=== PATIENT | male | born 1965 | race Caucasian/White ===

== ENCOUNTER 2017-04-03 22:46 | Emergency (ER) | payer SELFPAY ==
--- NOTE | 2017-04-03 22:52 | PDOC ---
History of Present Illness - General Chief Complaint: Weakness Stated Complaint: WEAKNESS TO BOTH LEGS FOR 6 DAYS Time Seen by Provider: 04/03/17 22:52 History Source: Patient Exam Limitations: No Limitations - History of Present Illness Initial Comments: 04/03/17 23:07 This is a 52-year-old male who comes in complaining of pain and weakness in his legs bilateral. Patient said that he had some problems at home and the for about 3 weeks was drinking heavily and doing crystal meth. Patient said he was admitted to another facility where he was an inpatient for several days secondary to animal nitrate poppers that resulted in low oxygen levels. Patient said that he is experiencing pain in his muscles and generalized weakness of his legs bilateral. Patient said the pain is primarily in his posterior calves and behind his knees. Patient said that bad at rest there is no pain but when he tries to walk the muscles are painful patient denies history of similar symptoms in the past patient denies any headache or neck pain. Patient denies any back pain. Patient. He says he has been using crutches to get around and has not followed up with his doctor. Patient said symptoms of been going on now for approximately a week to a week and a half. PAST MEDICAL HISTORY: no significant history PAST SURGICAL HISTORY: no significant history FAMILY HISTORY: no pertinant history SOCIAL HISTORY: Pt lives with family and is employed. MEDICATIONS: reviewed ALLERGIES: As per nursing notes Review of Systems General: No fevers or chills, no weakness, no weight loss HEENT: No change in vision. No sore throat,. No ear pain CardioVascular: No chest pain or shortness of breath Respiratory:No cough, or wheezing. Gastrointestinal: no nausea, vomitting, diarrhea or constipation, No rectal bleeding Genitourinary: No dysuria, hematuria, or frequency Musculoskeletal: Bilateral lower extremity pain and weakness Neurologic: No headache, vertigo, dizziness or loss of consciousness Psychiatric: nor depression Skin: No rashes or easy bruising Endocrine: no increased thirst or abnormal weight change Allergic: no skin or latex allergy All other systems reviewed and normal GENERAL: The patient is awake, alert, and fully oriented, in no acute distress. HEAD: Normal with no signs of trauma. EYES: Pupils equal, round and reactive to light, extraocular movements intact, sclera anicteric, conjunctiva clear. EXTREMITIES: Normal range of motion, no edema. There is no tenderness on palpation of the posterior calf or thighs. There is full range of motion of the lower extremities. Pulses of the lower extremities are present equal and normal NEUROLOGICAL: Normal speech, nonfocal exam, strength is 4 out of 5 bilateral lower extremities. PSYCH: Normal mood, normal affect. SKIN: Warm, Dry, normal turgor, no rashes or lesions noted. Head CT negative for any acute intracranial pathology Assessment and plan: This is a 52-year-old male who comes in complaining of bilateral lower extremity pain and weakness when trying to use his legs. Patient denies any pain in less he uses the muscles of his legs. Patient was ordered Toradol here in the emergency room which she refused and was given ibuprofen instead. Patient had a workup including a head CT and labs all of which were unremarkable with the exception of a very mildly elevated white count of 12.4 but no left shift. Patient has a primary care doctor that he can follow-up with was told to call his primary care doctor in the morning make an appointment to follow-up with his primary care doctor as soon as possible. The addition to that patient was given a prescription for Naprosyn and told to take that and begin to ambulate and use his muscles to help build strength back up. Past History - Past Medical History Allergies/Adverse Reactions: Allergies Allergy/AdvReac Type Severity Reaction Status Date / Time ceftriaxone sodium Allergy Intermediate Itching Verified 07/23/16 09:09 [From Rocephin] Home Medications: Ambulatory Orders Naproxen [Naprosyn -] 500 mg PO BID #14 tablet 04/04/17 Anemia: No Asthma: No Cancer: No Cardiac Disorders: No CVA: No COPD: No CHF: No Dementia: No Diabetes: No GI Disorders: Yes (DIVERTICULITIS/MOST RECENTLY MILD CASE X2 MONTHS AGO) Disorders: No HTN: No Hypercholesterolemia: No Liver Disease: No Seizures: No Thyroid Disease: No - Surgical History Abdominal Surgery: Yes (BILATERAL HERNIA REPAIR A CHILD) Appendectomy: No Cardiac Surgery: No Cholecystectomy: No Lung Surgery: No Neurologic Surgery: No Orthopedic Surgery: No - Psycho/Social/Smoking Cessation Hx Anxiety: No Suicidal Ideation: No Smoking History: Never smoked Have you smoked in the past 12 months: No Hx Alcohol Use: Yes (RARE/1-2 MONTHLY) Drug/Substance Use Hx: No Substance Use Type: Alcohol Hx Substance Use Treatment: No ED Treatment Course - LABORATORY CBC & Chemistry Diagram: 04/04/17 00:38 04/04/17 00:38 *DC/Admit/Observation/Transfer Diagnosis at time of Disposition: Pain in both lower extremities - Discharge Dispostion Disposition: HOME Condition at time of disposition: Stable Admit: No - Prescriptions Prescriptions: Naproxen [Naprosyn -] 500 mg PO BID #14 tablet - Patient Instructions Additional Instructions: For the pain take Naprosyn 1 tablet twice a day with food don't take on an empty stomach. I sent a prescription to your pharmacy for the Naprosyn so get it filled and take the Naprosyn instead [id number] as it is stronger. Call your doctor in the morning and get an appointment to follow-up with your doctor as soon as possible. Return to the emergency department immediately with ANY new, persistent or worsening symptoms. Continue any medications as previously prescribed by your physician. . Please make sure your doctor reviews the results of your emergency evaluation. Thank you for coming to the Emergency Department today for your care. It was a pleasure to see you today. Please note that your evaluation is INCOMPLETE until you follow-up with your doctor.
[2017-04-03 23:00] VITALS: BP 135/91; PULSE 102; TEMP 99.1; BMI 31.0
[2017-04-03 23:33] LABS: PH,URINE 5.5 (4.5-8); URINE APPEARANCE Clear; URINE BILIRUBIN 1+ (NEGATIVE); URINE GLUCOSE (UA) Negative (NEGATIVE); URINE KETONE Trace (NEGATIVE); URINE LEUK ESTERASE Negative (NEGATIVE); URINE NITRITE Negative (NEGATIVE); URINE PROTEIN Negative (NEGATIVE); URINE UROBILINOGEN 0.2 (0.2-1.0)
[2017-04-03 23:34] LABS: URINE BLOOD Trace-intact (NEGATIVE); URINE COLOR YELLOW
[2017-04-03 23:42] LABS: CALCIUM OXALATE CRYSTALS FEW /hpf (NONE SEEN); URINE BACTERIA FEW /hpf (NEGATIVE); URINE WBC 0-2 (3-5)
[2017-04-04] MEDS ORDERED: KETOROLAC TROMETHAMINE 60 MG/2 ML VIAL IM ONE (00:43)
[2017-04-04] MEDS ORDERED: KETOROLAC TROMETHAMINE 60 MG/2 ML VIAL ONE (00:48)
[2017-04-04 00:50] LABS: BASOPHIL 0.5 % (0-2.0); EOSINOPHIL 0.9 % (0-4.5); MCH 30.6 pg (25.7-33.7); MCHC 33.7 g/dl (32.0-35.9); MEAN CELL VOLUME 90.7 fl (80-96); MEAN PLT VOLUME 9.5 fl (7.5-11.1); NEUTROPHILS 59.8 % (42.8-82.8); PLATELET COUNT 320 K/MM3 (134-434); RDW 13.4 % (11.9-15.9); WHITE BLOOD COUNT 12.4 K/mm3 (4.0-10.0)
[2017-04-04] MEDS ORDERED: IBUPROFEN 600 MG TABLET (FP) PO ONE ×2 (00:50→00:53)
[2017-04-04 01:23] LABS: ALBUMIN 3.2 g/dl (3.4-5.0); ANION GAP 9 (8-16); BILIRUBIN,TOTAL 0.4 mg/dL (0.2-1.0); CALCIUM 8.6 mg/dL (8.5-10.1); CO2 29 mmol/L (21-32); CREATININE 1.1 mg/dL (0.7-1.3); GLUCOSE,RANDOM 101 mg/dL (74-106); MAGNESIUM 2.1 mg/dL (1.8-2.4); PHOSPHOROUS 3.5 mg/dL (2.5-4.9); SGOT/AST 13 U/L (15-37); SGPT/ALT 26 U/L (12-78); TOT PROT 6.8 g/dl (6.4-8.2)
[2017-04-04 01:24] LABS: ALK PHOS 88 U/L (45-117)
[2017-04-04 01:26] LABS: CPK 52 IU/L (39-308); TROPONIN I < 0.02 ng/ml (0.00-0.05)
== END 2017-04-04 01:48 | disposition home or self-care (01) ==
LOC: FER 22:46
PROC: 3E0233Z Introduction of Anti-inflammatory into Muscle, Percutaneous Approach (ICD-10-PCS; principal; 2017-04-03)
DX: M79.605 Pain in left leg (principal); M79.604 Pain in right leg; Z88.1 Allergy status to other antibiotic agents
CPT/HCPCS: 36415; 70450-TC; 80053; 81003; 81015; 83735; 84100; 84484; 85025; 99282-25